=== PATIENT | male | born 1940 | race Caucasian/White ===

== ENCOUNTER → 2016-12-24 | Outpatient (CLI) | payer MEDICARE, BC ==
[~2016-12-24] MED LIST: APRESOLINE50 MG PO; ASPIRIN LO-DOSE81 MG PO; CARDIZEM CD (T120 MG PO; COUMADIN ** IA5 MG PO; FISH OIL 1,0001 EAC5 PO; HYDROCODON-ACE1 EAC4 PO; ISOSORBIDE MONO60 MG PO; LIPITOR40 MG PO; PRINIVIL (ZESTR20 MG PO; RYTHMOL225 MG PO; THERA-VITE W/ B1 TAB PO; VITAMIN D310000 UNIT PO; ZYLOPRIM100 MG PO
== END ==
LOC: LGSMG 14:00
DX: I12.9 Hypertensive chronic kidney disease with stage 1 through stage 4 chronic kidney disease, or unspecified chronic kidney disease (principal); N18.3 Chronic kidney disease, stage 3 (moderate); E11.22 Type 2 diabetes mellitus with diabetic chronic kidney disease

== ENCOUNTER 2017-01-30 11:37 | Inpatient (IN) | payer MEDICARE, BC ==
[~2017-01-30] VITALS: Ht 182.9 cm; Wt 77.8 kg
--- NOTE | ~2017-01-30 | DS ---
PATIENT'S NAME: JAYNE SOFIA [facility] AGE: 76 Y [address] ROOM: [address] [id number] LOCATION: GPCU ADMIT DATE: 01/31/2017 Discharge Summary DISCHARGE DATE: 02/04/2017 FAMILY PHYSICIAN: ED PAEZ MD ([facility]) ATTENDING PHYSICIAN: JOHN FELIX PRIMARY DIAGNOSES: 1. Gross hematuria. 2. Bladder outlet obstruction. 3. Acute kidney injury. 4. Chronic kidney disease, stage 3. 5. Paroxysmal atrial fibrillation. 6. Long-term anticoagulation with warfarin. 7. Acute blood loss anemia. 8. Essential hypertension. 9. 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 10. History of cancer, status post bone marrow transplant. OPERATIONS OR PROCEDURES: None. HISTORY OF ILLNESS/REASON FOR ADMISSION: Please read H and P dictated on 01/31/2017. HOSPITAL COURSE: The patient was admitted to the hospital as noted above with a presumptive diagnosis of gross hematuria and acute blood loss anemia following renal biopsy. Briefly, he had been referred for renal biopsy by the microfilming document preparer for evaluation of chronic kidney disease, stage 3. He had been known to have some prior history of kidney injury related to radiation therapies. The results of the kidney biopsy are still pending. His Coumadin was held prior to the procedure and on the day of the procedure, his INR was 0.95. He was hemodynamically stable over the course of his hospital stay. He did require PRBC transfusion with a hemoglobin of 6.8 on 02/02/2017. His hemoglobin resolved to 8.9 by 02/04/2017, and he did not show any evidence for continued bleeding. Because of gross hematuria, clots, and bladder outlet obstruction, continuous bladder irrigation was initiated. This was carried out through 02/03/2017, but then was subsequently discontinued once his urine cleared up. On 02/04/2017, CBI catheter was discontinued and the patient was voiding independently. At that point, it was felt he would be stable enough for discharge to home with plans for close clinical follow up with Nephrology. He was instructed to continue to hold the warfarin until followup with Nephrology. PATIENT'S NAME: JAYNE SOFIA [facility] AGE: 76 Y [address] ROOM: [id number] [place], [place] [address] LOCATION: GPCU ADMIT DATE: 01/31/2017 Discharge Summary DISCHARGE DATE: 02/04/2017 FAMILY PHYSICIAN: ED PAEZSHIRLENEJosias HOLLINS ATTENDING PHYSICIAN: JOHN FELIX DISCHARGE INSTRUCTIONS: DIET: Regular as tolerated. ACTIVITY: As tolerated. MEDICATIONS: 1. Allopurinol 200 mg p.o. daily. 2. Aspirin 81 mg p.o. daily. 3. Atorvastatin 40 mg p.o. q.h.s. 4. Vitamin D3, 10,000 units p.o. q.a.m. 5. Diltiazem CD 120 mg p.o. daily. 6. Hydralazine 50 mg 2 tabs p.o. q.a.m. and 50 mg p.o. q.noon and h.s. 7. Isosorbide mononitrate 60 mg p.o. q.a.m. 8. Lisinopril 40 mg p.o. q.h.s. 9. Multivitamin daily. 10. [place]-3 fish oil 1000 mg p.o. q.a.m. 11. Propafenone 225 mg p.o. t.i.d. FOLLOWUP: He will follow up with Dr. Felix, Nephrology, on 02/08/2017 as previously arranged. He will follow up with his primary care provider, Dr. Paez, in [place] in 7-10 days. CONDITION ON DISCHARGE: Fair. Total time spent on discharge process: 45 minutes. MD BRANDIE MAKI/jacqueline /[id number] d: 02/04/17 2350 t: 02/08/17 1618, DISCHARGE SUMMARY
--- NOTE | ~2017-01-30 | CON ---
PATIENT'S NAME: JAYNE SOFIA [facility] AGE: 76 Y [address] ROOM: [address] [place], [place] [address] LOCATION: GPCU ADMIT DATE: 01/30/2017 Consultation DISCHARGE DATE: FAMILY PHYSICIAN: ED PAEZ MD ([facility]) ATTENDING PHYSICIAN: JOHN FELIX DATE OF CONSULTATION: 01/30/2017 This is a [facility] Nephrology consultation. REASON FOR CONSULTATION: History of CKD, stage 3 to 4, status post kidney biopsy, proteinuria, hematuria. HISTORY OF PRESENT ILLNESS: This is a 76-year-old male patient, who is well known to Dr. Felix with a past medical history of chronic kidney disease stage 3 to 4 with increasing proteinuria and worsening creatinine. The patient has been following in the outpatient setting with Dr. Felix and was scheduled for outpatient kidney biopsy today. The patient underwent a right kidney biopsy with no complications. Postoperatively, the patient developed hematoma of the right kidney and was subsequently admitted for further evaluation and workup. CT abdomen and pelvis without contrast was performed prior to the patient being admitted and was found to show consistent acute blood within the mildly distended right renal collecting system and within a distended bladder. Per report from the , the patient tolerated the procedure well and developed hematuria in the postoperative period. The patient was subsequently admitted for further evaluation and care. The patient's baseline creatinine per medical record was 1.0. However, more recently, the patient's creatinine has increased to 2.2. Today post biopsy, the patient's creatinine is 2.6. Protein creatinine ratio has been 2.4 per the record. Therefore, due to the patient's history of chronic kidney disease with proteinuria, status post kidney biopsy, Dr. Felix has been asked to consult on the patient and manage his kidney disease while he is hospitalized. At the time of exam, the patient is consistently hypertensive. He is also complaining of excruciating right-sided back pain. He is on continuous bladder irrigation at this time. PAST MEDICAL HISTORY: As listed above includin. CKD stage 3 to 4. 2. Proteinuria. 3. Hyperlipidemia. 4. Hypertension. 5. Atrial fibrillation. 6. High-risk medications in the form of Rythmol. 7. Long-term anticoagulation in the form of Coumadin, currently being held prior to procedure. ALLERGIES: NONE TO MEDICATION, SHELLFISH. SOCIAL HISTORY: The patient is a retired preschool teacher aide. Denies any illicit drug use, smoking, or alcohol use. He does live at home with his in [place]. FAMILY HISTORY: Reviewed and is noncontributory. There is no history of renal disease or dialysis per the . PATIENT'S NAME: JAYNE SOFIA [facility] AGE: 76 Y [address] ROOM: [address] [address] [facility] ADMIT DATE: 01/30/2017 Consultation DISCHARGE DATE: FAMILY PHYSICIAN: ED PAEZ MD ([facility]) ATTENDING PHYSICIAN: JOHN FELIX CURRENT MEDICATIONS: 1. Apresoline 100 mg p.o. every morning and 50 mg p.o. at noon and 50 mg p.o. at bedtime. 2. Cardizem 120 mg p.o. daily at 1200 hours. 3. Fish oil 1000 mg p.o. daily. 4. Imdur 60 mg p.o. daily at 7. 5. Lipitor 40 mg p.o. daily at bedtime. 6. Prinivil 40 mg daily at bedtime. 7. Rythmol 225 mg p.o. t.i.d. 8. Theravite 1 tablet daily. 9. Vitamin D 2000 units p.o. daily. REVIEW OF SYSTEMS: GENERAL: Denies any new fever, chills, or night sweats. HEENT: Eyes: No double vision or blurred vision. Nose: No epistaxis or rhinorrhea. Mouth no gingival bleeding. Throat: No sore throat, hoarseness, or cough. RESPIRATORY: Denies wheezing or hemoptysis. CARDIOVASCULAR: Denies any new chest pain or shortness of breath. Denies presyncope or syncope. GASTROINTESTINAL: Denies nausea, vomiting, diarrhea. Denies hematemesis or hematochezia. GENITOURINARY: Denies any new frequency, urgency, or hesitancy. Positive for hematuria, status post procedure this afternoon. NEUROLOGICAL: Denies numbness and tingling in the upper or lower extremities. MUSCULOSKELETAL: Positive back pain, right-sided flank. IMMUNOLOGICAL: Denies recent infection. HEMATOLOGICAL: Positive for hematuria. Denies any easy bruising or bleeding. PSYCHIATRIC: Denies a history of depression or anxiety. LABORATORY DATA: Labs are currently pending at the time of initial exam. PHYSICAL EXAMINATION: VITAL SIGNS: Blood pressure 202/98, heart rate 77, respirations 14, temp is 98.1, and saturations are 97% on 1 L nasal cannula. GENERAL: On exam, this is an alert and oriented elderly male, who appears his approximate stated age, is in a moderate amount of distress secondary to pain. HEENT: Head: His head is normocephalic and atraumatic. Eyes: Pupils are equal, round, reactive to light and accommodation. EOMs intact. Nose: Midline. Mouth: No gingival bleeding. Throat without lymphadenopathy, carotid bruits, or JVD. LUNGS: Lung sounds are clear to auscultation anteriorly and posteriorly. Breaths are nonlabored. CARDIOVASCULAR: Regular rate and rhythm with no appreciable murmurs, rubs, or thrills. ABDOMEN: Soft, positive for tenderness diffusely throughout the anterior abdomen and posterior aspect of the right flank. Bowel sounds are positive, however, distant. EXTREMITIES: Show no signs of peripheral edema, clubbing, or cyanosis. GENITOURINARY: A Haji catheter, three-way is in place noting ruma red blood in the urine. NEUROLOGIC: Cranial nerves 2 through 12 are grossly intactPATIENT'S NAME: JAYNE SOFIA [facility] AGE: 76 Y [address] ROOM: [place] [address] LOCATION: GPCU ADMIT DATE: 01/30/2017 Consultation DISCHARGE DATE: FAMILY PHYSICIAN: ED PAEZ (CONSUELO HOLLINS ATTENDING PHYSICIAN: JOHN FELIX ASSESSMENT AND PLAN: 1. Acute kidney injury on chronic kidney disease, status post renal biopsy secondary to proteinuria. Possibly secondary to significant hematuria as well as ischemic nephritis with coiling. Patient is getting anti hypertensive medications with hypertensive crisis post procedure. Once blood pressure is under control we will go for aggressive volume resuscitation and closely monitor renal status. With significant hematuria there is no point of doing urinalysis and urine lytes as the results are likely to be skewed. 2. Bleeding/hematuria status post renal biopsy: patient underwent CTA and 2 endovascular coils was placed in the lower pole of right kidney to obliterate AV fistula. Patient continues to have significant hematuria at this point and we started CBI. Plan to continue CBI until hematuria clears up considerably. We will monitor CBC and will transfuse as required. 3. Hypertensive urgency : He patient does continue to have significantly elevated blood pressure. With postprocedural bleeding after renal biopsy there is a chance patient may have developed "PAGE KIDNEY". We are planning to do a CT abdomen and pelvis right now to rule out any significant pain frequently 8/subcapsular hematoma. If there is a significant subcapsular hematoma we may need to consider IR guided drain. Further recommendations will be forthcoming in the interim maintain hemodynamic stability. We will use nola inhibitor to control blood pressure and will restart all of his home antihypertensive medications. 4. Chronic kidney disease stage 3 to 4 with proteinuria. Patient has long history of hypertension but blood pressures is reasonably well controlled. 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 Renal function which was relatively preserved till late last year currently deteriorated progressively to a range of GFR of 20-25. Patient also have significant proteinuria with protein creatinine ratio of 2.4 on spot urine sample. 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 Biopsy was seems to be reasonable for etiological diagnosis and prognostication. Currently pathology is pending and we will follow up the histopathologic results. This patient has been seen and assessed by Dr. Felix. His care is being conducted in consultation with Dr. Felix as well as me. We will plan further recommendations as they are forthcoming. PITER SANDY DNP, BODY FINISHER FOR JOHN FELIX MD ENS/modl /[id number] d: 01/31/17215 t: 02/09/17 0950, CONSULTATION REPORT
--- NOTE | ~2017-01-30 | HP ---
PATIENT'S NAME: PATRICE SOFIAH Kymberly [facility] AGE: 76 Y [address] ROOM: [place] [address] LOCATION: GPCU ADMIT DATE: 01/30/2017 History & Physical DISCHARGE DATE: FAMILY PHYSICIAN: ED PAEZ MD ([facility]) ATTENDING PHYSICIAN: JOHN PALMER DATE OF SERVICE: CHIEF COMPLAINT: Hematuria. HISTORY OF PRESENT ILLNESS: A 76-year-old very pleasant gentleman with a past medical history of leukemia, status post stem cell transplant; chronic kidney disease, unknown stage, was scheduled to have elective right kidney biopsy today by Interventional Radiology. Post procedurally, he developed right-sided pain and ruma hematuria. He was taken back to the angio suite, and coiling of the adjacent artery was done. Post procedurally, his pain decreased from 10 to 4, which was sharp in character, located in the right side, associated with inability to pass any urine and fullness in the lower abdomen. He later did not have any ruma hematuria, just blood-tinged fluid coming out. He denied any fever, chest pain, shortness of breath, headache, or any extremity swelling at this point. A CAT scan of the abdomen was done, which did show a blood clot in the collecting system of the right kidney as well as in the distended bladder. REVIEW OF SYSTEMS: All other systems reviewed were negative except what is mentioned in the HPI. ALLERGIES: NO KNOWN DRUG ALLERGIES. FAMILY HISTORY: Significant for father having coronary artery disease. PAST MEDICAL HISTORY: Chronic kidney disease, unknown stage; leukemia, status post stem cell transplant; hypertension; atrial fibrillation, on long-term anticoagulation, had been off for over a week now. SOCIAL HISTORY: Quit smoking in 1972. MEDICATIONS: Being reconciled right now. PATIENT'S NAME: JAYNE SOFIA [facility] AGE: 76 Y [address] ROOM: [place] [address] LOCATION: GPCU ADMIT DATE: 01/30/2017 History & Physical DISCHARGE DATE: FAMILY PHYSICIAN: ED PAEZ MD ([facility]) ATTENDING PHYSICIAN: JOHN PALMER PHYSICAL EXAMINATION: VITAL SIGNS: Blood pressure 180/57, 80, afebrile, respiratory rate of 20, saturating 95% on room air. GENERAL: In moderate acute distress due to pain. Alert and oriented x3. HEENT: Head: Atraumatic, normocephalic. Eyes: Nonicteric. No pallor. Oropharynx: Moist mucous membranes. CARDIOVASCULAR: S1, S2. No murmurs, gallops, rubs. LUNGS: Clear to auscultation bilaterally. ABDOMEN: Soft, nontender, nondistended. Bowel sounds present. There is some tenderness noted in the right costovertebral angle. Bowel sounds are present. EXTREMITIES: No clubbing, cyanosis, or edema. PSYCH: Normal affect, mood, and speech. NEUROLOGIC: Cranial nerves 2 through 12 intact. No motor or sensory deficit noted. MUSCULOSKELETAL: No muscle tenderness or joint swelling noted. LYMPH: No lymphangitis or lymphadenopathy noted. ENDOCRINE: No thyromegaly or cushingoid features noted. DIAGNOSTIC DATA: INR was 0.[address] scan per HPI showing dilatation of the right collecting system and possible blood clot present in the distended bladder as well. CBC and BMP are pending at this point. ASSESSMENT AND PLAN: 1. Hematuria. 2. Hypertensive urgency. 3. Chronic kidney disease, unknown stage. 4. Essential hypertension. 5. Atrial fibrillation, on long-term anticoagulation. We are going to admit this patient under observation. Haji's catheter will be placed per Urology advice. 24-[place] three-way and CBI will be initiated. Pain and nausea control will be provided. Serial H and H and BMP will be done. The patient is full code. SCDs for DVT prophylaxis. Further management will depend on his progress in the hospital. MD JENNIFER WHITMAN/jacqueline /[id number] D: 253 T: 832 HISTORY & PHYSICAL
[2017-01-30 12:37] LABS: INR - (THERAPEUTIC) 0.95 (0.92-1.07)
[2017-01-30 17:21] LABS: BASOPHIL # 0.1 K/uL (0.0-0.2); BASOPHIL % 0.5 %; EOSINOPHIL # 0.2 K/uL (0.0-0.5); EOSINOPHIL % 1.9 %; HEMATOCRIT 29.4 % (37.0-53.0); HEMOGLOBIN 9.7 g/dL (11.0-16.0); IMMATURE GRANULOCYTE # 0.1 K/uL (0.0-0.3); IMMATURE GRANULOCYTE % 0.4 %; LYMPHOCYTE # 1.8 K/uL (0.8-4.0); LYMPHOCYTE % 16.3 %; MCH 30.1 pg (27.0-34.0); MCV 91.3 fl (83.0-98.0); MONOCYTE # 0.9 K/uL (0.0-1.0); MPV 10.1 fl (9.4-12.4); NEUTROPHIL # (ANC) 8.3 K/uL (1.4-9.0); NEUTROPHIL % 72.9 %; NRBC % 0 /100WBC (0-0.00); PLATELET COUNT 224 K/uL (150-450); RBC 3.22 M/uL (3.50-5.50); RDW-CV 20.4 % (11.9-14.6); WBC 11.3 K/uL (4.0-11.0)
[2017-01-30 18:35] LABS: ANION GAP 12.6 (10.0-19.0); CALCIUM 8.3 mg/dL (8.5-10.5); CREATININE 2.6 mg/dL (0.6-1.3); POTASSIUM 4.6 mMol/L (3.7-5.1)
[2017-01-30 22:12] LABS: HEMOGLOBIN 9.6 g/dL (11.0-16.0)
[2017-01-31 02:03] LABS: BASOPHIL % 0.1 %; HEMOGLOBIN 8.8 g/dL (11.0-16.0); IMMATURE GRANULOCYTE % 0.3 %; LYMPHOCYTE # 1.2 K/uL (0.8-4.0); LYMPHOCYTE % 11.3 %; MCH 29.8 pg (27.0-34.0); MCHC 32.6 gm/dL (32.0-36.5); MCV 91.5 fl (83.0-98.0); MONOCYTE % 9.5 %; MPV 9.7 fl (9.4-12.4); NEUTROPHIL # (ANC) 8.2 K/uL (1.4-9.0); NEUTROPHIL % 78.8 %; NRBC % 0 /100WBC (0-0.00); PLATELET COUNT 207 K/uL (150-450); RBC 2.95 M/uL (3.50-5.50); RDW-CV 20.4 % (11.9-14.6); WBC 10.3 K/uL (4.0-11.0)
[2017-01-31 10:31] LABS: ALBUMIN 3.3 gm/dL (3.5-5.0); ANION GAP 12.3 (10.0-19.0); CALCIUM 8.6 mg/dL (8.5-10.5); CREATININE 3.1 mg/dL (0.6-1.3); PHOSPHORUS 3.7 mg/dL (2.5-4.9); POTASSIUM 4.3 mMol/L (3.7-5.1)
[2017-02-01 05:51] LABS: BASOPHIL % 0.3 %; EOSINOPHIL # 0.2 K/uL (0.0-0.5); EOSINOPHIL % 1.5 %; HEMATOCRIT 23.2 % (37.0-53.0); IMMATURE GRANULOCYTE % 0.4 %; LYMPHOCYTE # 1.2 K/uL (0.8-4.0); LYMPHOCYTE % 10.5 %; MCH 29.9 pg (27.0-34.0); MCHC 32.3 gm/dL (32.0-36.5); MCV 92.4 fl (83.0-98.0); MONOCYTE # 1.3 K/uL (0.0-1.0); MONOCYTE % 11.7 %; MPV 10.2 fl (9.4-12.4); NEUTROPHIL # (ANC) 8.4 K/uL (1.4-9.0); NEUTROPHIL % 75.6 %; NRBC % 0 /100WBC (0-0.00); PLATELET COUNT 186 K/uL (150-450); RBC 2.51 M/uL (3.50-5.50); RDW-CV 19.9 % (11.9-14.6); WBC 11.1 K/uL (4.0-11.0)
[2017-02-01 05:52] LABS: HEMOGLOBIN 7.5 g/dL (11.0-16.0)
[2017-02-01 06:04] LABS: ALBUMIN 2.9 gm/dL (3.5-5.0); ANION GAP 12.6 (10.0-19.0); CALCIUM 8.4 mg/dL (8.5-10.5); CREATININE 2.8 mg/dL (0.6-1.3); POTASSIUM 4.6 mMol/L (3.7-5.1); TOTAL BILIRUBIN 0.4 mg/dL (0.0-1.5); TOTAL PROTEIN 6.1 g/dL (6.0-8.4)
[2017-02-01 18:03] LABS: HEMATOCRIT 22.1 % (37.0-53.0)
[2017-02-01 18:07] LABS: HEMOGLOBIN 7.3 g/dL (11.0-16.0)
[2017-02-02 03:32] LABS: BASOPHIL % 0.2 %; EOSINOPHIL # 0.2 K/uL (0.0-0.5); EOSINOPHIL % 1.9 %; HEMATOCRIT 20.8 % (37.0-53.0); IMMATURE GRANULOCYTE % 0.3 %; LYMPHOCYTE # 1.5 K/uL (0.8-4.0); LYMPHOCYTE % 17.4 %; MCHC 32.7 gm/dL (32.0-36.5); MCV 91.6 fl (83.0-98.0); MONOCYTE % 10.8 %; MPV 9.5 fl (9.4-12.4); NEUTROPHIL # (ANC) 6.1 K/uL (1.4-9.0); NEUTROPHIL % 69.4 %; NRBC % 0 /100WBC (0-0.00); PLATELET COUNT 175 K/uL (150-450); RBC 2.27 M/uL (3.50-5.50); RDW-CV 19.8 % (11.9-14.6); WBC 8.9 K/uL (4.0-11.0)
[2017-02-02 03:33] LABS: HEMOGLOBIN 6.8 g/dL (11.0-16.0)
[2017-02-02 03:47] LABS: ALBUMIN 2.5 gm/dL (3.5-5.0); ANION GAP 12.3 (10.0-19.0); CALCIUM 8.4 mg/dL (8.5-10.5); CREATININE 2.6 mg/dL (0.6-1.3); PHOSPHORUS 3.6 mg/dL (2.5-4.9); POTASSIUM 4.3 mMol/L (3.7-5.1)
[2017-02-02 15:33] LABS: BILIRUBIN URINE NEGATIVE (NEGATIVE); BLOOD URINE 250 /UL (NEGATIVE); COLOR URINE RED (YELLOW); GLUCOSE URINE NEGATIVE (NEGATIVE); KETONE URINE NEGATIVE (NEGATIVE); LEUKOCYTES URINE 25 /UL (NEGATIVE); NITRITE URINE NEGATIVE (NEGATIVE); PROTEIN URINE 30 mg/dL (NEGATIVE); TURBIDITY URINE 3+ (CLEAR); UROBILINOGEN URINE NORMAL (NORMAL)
[2017-02-02 15:44] LABS: BACTERIA URINE NEGATIVE (NEGATIVE); EPITHELIAL URINE NEGATIVE #/HPF (NEGATIVE); RBC URINE FULL FIELD #/HPF (NEGATIVE)
[2017-02-02 19:09] LABS: HEMATOCRIT 24.6 % (37.0-53.0); HEMOGLOBIN 8.2 g/dL (11.0-16.0)
[2017-02-03 04:32] LABS: BASOPHIL % 0.3 %; EOSINOPHIL # 0.3 K/uL (0.0-0.5); EOSINOPHIL % 4.5 %; HEMATOCRIT 25.1 % (37.0-53.0); HEMOGLOBIN 8.3 g/dL (11.0-16.0); IMMATURE GRANULOCYTE % 0.3 %; LYMPHOCYTE # 1.2 K/uL (0.8-4.0); LYMPHOCYTE % 15.3 %; MCH 29.6 pg (27.0-34.0); MCHC 33.1 gm/dL (32.0-36.5); MCV 89.6 fl (83.0-98.0); MONOCYTE # 0.8 K/uL (0.0-1.0); MONOCYTE % 10.8 %; MPV 9.9 fl (9.4-12.4); NEUTROPHIL # (ANC) 5.2 K/uL (1.4-9.0); NEUTROPHIL % 68.8 %; NRBC % 0 /100WBC (0-0.00); PLATELET COUNT 205 K/uL (150-450); RDW-CV 19.1 % (11.9-14.6); WBC 7.6 K/uL (4.0-11.0)
[2017-02-03 04:47] LABS: ALBUMIN 2.7 gm/dL (3.5-5.0); ANION GAP 11.2 (10.0-19.0); CALCIUM 8.8 mg/dL (8.5-10.5); CREATININE 2.5 mg/dL (0.6-1.3); PHOSPHORUS 3.9 mg/dL (2.5-4.9); POTASSIUM 4.2 mMol/L (3.7-5.1)
[2017-02-04 04:42] LABS: BASOPHIL % 0.4 %; EOSINOPHIL # 0.4 K/uL (0.0-0.5); EOSINOPHIL % 5.1 %; HEMOGLOBIN 8.9 g/dL (11.0-16.0); IMMATURE GRANULOCYTE % 0.4 %; LYMPHOCYTE # 1.2 K/uL (0.8-4.0); LYMPHOCYTE % 17.4 %; MCH 29.7 pg (27.0-34.0); MONOCYTE # 0.9 K/uL (0.0-1.0); MONOCYTE % 12.7 %; MPV 10.7 fl (9.4-12.4); NEUTROPHIL # (ANC) 4.4 K/uL (1.4-9.0); NRBC % 0 /100WBC (0-0.00); PLATELET COUNT 235 K/uL (150-450); RDW-CV 18.9 % (11.9-14.6); WBC 6.8 K/uL (4.0-11.0)
[2017-02-04 04:54] LABS: ALBUMIN 2.7 gm/dL (3.5-5.0); ANION GAP 12.8 (10.0-19.0); CALCIUM 8.8 mg/dL (8.5-10.5); CREATININE 2.3 mg/dL (0.6-1.3); PHOSPHORUS 2.6 mg/dL (2.5-4.9); POTASSIUM 3.8 mMol/L (3.7-5.1)
== END 2017-02-04 16:35 | disposition disaster alternative care site (69) | DRG 674 ==
LOC: GOPD 11:37 → GPCU 15:41
PROVIDERS: Internal Medicine; Internal Medicine Nephrology; Nurse Practitioner Family; ADMIT Internal Medicine
PROC: 04L93DZ Occlusion of Right Renal Artery with Intraluminal Device, Percutaneous Approach (ICD-10-PCS; 2017-01-30)
PROC: 0TB03ZX Excision of Right Kidney, Percutaneous Approach, Diagnostic (ICD-10-PCS; 2017-01-30)
PROC: 30233N1 Transfusion of Nonautologous Red Blood Cells into Peripheral Vein, Percutaneous Approach (ICD-10-PCS; principal; 2017-02-02)
DX: R31.0 Gross hematuria (principal); Z94.84 Stem cells transplant status; N17.9 Acute kidney failure, unspecified; D62 Acute posthemorrhagic anemia; S37.011A Minor contusion of right kidney, initial encounter; N28.0 Ischemia and infarction of kidney; I48.0 Paroxysmal atrial fibrillation; I16.0 Hypertensive urgency; N32.0 Bladder-neck obstruction; I12.9 Hypertensive chronic kidney disease with stage 1 through stage 4 chronic kidney disease, or unspecified chronic kidney disease; N18.3 Chronic kidney disease, stage 3 (moderate); Z79.01 Long term (current) use of anticoagulants; Z92.3 Personal history of irradiation; Z87.891 Personal history of nicotine dependence; Y84.8 Other medical procedures as the cause of abnormal reaction of the patient, or of later complication, without mention of misadventure at the time of the procedure; Y92.239 Unspecified place in hospital as the place of occurrence of the external cause; N32.89 Other specified disorders of bladder
CPT/HCPCS: C1760; C1769; C1887; C1894; G0378; J1170; J1644; J1940; J2001; J2250; J2405; J3010; J7030; J7040; J7050; P9058

== ENCOUNTER → 2017-02-12 | Outpatient (CLI) | payer MEDICARE, BC | LOC: LGSMG 11:23 | DX: I12.9 Hypertensive chronic kidney disease with stage 1 through stage 4 chronic kidney disease, or unspecified chronic kidney disease (principal); N18.9 Chronic kidney disease, unspecified; E11.22 Type 2 diabetes mellitus with diabetic chronic kidney disease ==

== ENCOUNTER → 2017-02-12 | Outpatient (CLI) | payer MEDICARE, BC | END | disposition disaster alternative care site (69) | LOC: GRAD 13:00 | DX: R06.02 Shortness of breath (principal); R76.8 Other specified abnormal immunological findings in serum; I70.90 Unspecified atherosclerosis ==